=== PATIENT | male | born 1950 | race Caucasian/White ===

== ENCOUNTER 2016-11-08 00:32 | Emergency (ER) | payer MEDICARE ==
[2016-11-08] MEDS ORDERED: ACETAMINOPHEN 325 MG TABLET PO ONE (01:30)
--- NOTE | 2016-11-08 01:32 | ER Document Report ---
HPI - HPI Patient complains to provider of: left foot injury Context: Patient is a 66-year-old male that comes by EMS [id number] for chief complaint of his left foot/toes being run over by a motorized wheelchair. Patient remembers the incident, he states he has a little bit of pain and he could feel a little bit of bleeding initially but this resolved. Patient denies any other injuries or complaints. Past medical history of blindness, dementia. Patient is not a diabetic, not on a blood thinner, he has a current standing order for Zosyn daily secondary to a urinary tract infection. <DANNA OMALLEY - Last Filed: 11/08/16 06:22> Past Medical History - General Information source: Patient - Social History Smoking Status: Never Smoker Frequency of alcohol use: None Drug Abuse: None Lives with: Family Family History: Reviewed & Not Pertinent - Past Medical History Cardiac Medical History: Reports: Hx Hypertension Neurological Medical History: Reports: Other - dementia - Immunizations Immunizations up to date: Yes Hx Diphtheria, Pertussis, Tetanus Vaccination: Yes <DANNA OMALLEY Last Filed: 11/08/16 06:22> Vertical Provider Document - CONSTITUTIONAL General Appearance: WD/WN - Patient sitting calmly and quietly on the stretcher , no signs of distress, No Apparent Distress - INFECTION CONTROL TRAVEL OUTSIDE OF THE [place] IN LAST 30 DAYS: No - HEENT HEENT: Atraumatic, Normocephalic. negative: Normal ENT Exam - Patient with abnormal appearance of both eyes with glazed over pupils - NECK Neck: Normal Inspection - RESPIRATORY Respiratory: Breath Sounds Normal, No Respiratory Distress - CARDIOVASCULAR Cardiovascular: Regular Rate, Regular Rhythm - GI/ABDOMEN Gastrointestinal: Abdomen Soft, Abdomen Non-Tender - MUSCULOSKELETAL/EXTREMETIES Musculoskeletal/Extremeties: Tender - There is bruising and a tiny abrasion over the dorsal aspect of the left second toe. Intact nail. Sensation and capillary refill intact. Remaining foot exam is unremarkable with no other areas of tenderness or abnormality. <DANNA OMALLEY Last Filed: 11/08/16 06:22> Course - Re-evaluation Re-evalutation: X-ray imaging showing nondisplaced fracture of the second digit. Area was cleaned, lien taping applied, I did discuss the findings with the patient in detail. He states he does not want a protective shoe, he barely walks. He did request Tylenol but stated he did not want anything stronger. Patient very pleasant during his stay. <DANNA OMALLEY - Last Filed: 11/08/16 06:22> - Vital Signs Vital signs: Temp Pulse Resp BP Pulse Ox 98.2 F 68 17 116/83 95 11/08/16 03:59 11/08/16 03:59 11/08/16 03:59 11/08/16 03:59 11/08/16 03:59 <SHANNON ALBRIGHT - Last Filed: 11/08/16 07:14> Procedures - Immobilization Left second toe Pre-Proc Neuro Vasc Exam: Normal Immobilizer type: Other - lien taping of 2nd and 3rd toes Performed by: PCT Post-Proc Neuro Vasc Exam: Normal Alignment checked and good: Yes <DANNA OMALLEY - Last Filed: 11/08/16 06:22> Discharge <DANNA OMALLEY - Last Filed: 11/08/16 06:22> <SHANNON ALBRIGHT - Last Filed: 11/08/16 07:14> - Discharge Clinical Impression: Foot injury Qualifiers: Encounter type: initial encounter Laterality: left Qualified Code(s): S99.922A - Unspecified injury of left foot, initial encounter Toe fracture, left Qualifiers: Encounter type: initial encounter Toe: lesser toe Fracture type: closed Phalanx : unspecified phalanx Fracture alignment: nondisplaced Qualified Code(s): S92.505A - Nondisplaced unspecified fracture of left lesser toe(s), initial encounter for closed fracture Condition: Stable Disposition: HOME, SELF-CARE Additional Instructions: There is a nondisplaced fracture on the end of the second toe of the left foot. Keep clean, apply lien tape dressing with padding in between the second and third toe, use protective shoe if needed for walking to avoid further trauma. Ice the toe for the first day (about 3 times), give Tylenol for pain. Follow-up with primary care. Return to emergency department for any concerning symptoms including redness or swelling of the area. Fractured Toe You have fractured your toe. Although this fracture doesn't need a cast or splint, emergency evaluation was needed to assess the straightness of the bones and joints. Reduction ("setting") is necessary for toe fractures which are crooked or twisted. A toe fracture will heal in about three weeks. Usually, the fractured toe is taped to the next toe. The second toe acts as a moving splint to protect the broken one. Ice and elevation help during the first 48 hours. You may need crutches at first if walking is painful. When you begin walking, be careful NOT to do things that hurt. If weight bearing is not comfortable within a few days, you may require a special shoe, walking boot, or cast. Call the doctor or return at once if severe swelling, severe pain, or numbness develop in the toe, or if you suspect you may have re-injured it.
--- NOTE | 2016-11-08 03:18 | RADIOLOGY REPORT (SQ) ---
EXAM DESCRIPTION: FOOT LEFT COMPLETE COMPLETED DATE/TIME: 11/08/2016 2:06 am REASON FOR STUDY: foot/toe run over by wheelchair COMPARISON: Left foot x-ray 02/08/2007. NUMBER OF VIEWS: Three views. TECHNIQUE: AP, lateral and oblique radiographic images acquired of the left foot. LIMITATIONS: None. FINDINGS: MINERALIZATION: Osteopenia. BONES: Linear lucencies noted at the 2nd distal phalanx, suggestive of a nondisplaced fracture. Ther e is cortical irregularity at the 1st proximal phalanx. Degenerative changes with mild hallux valgus deformity at the 1st metatarsophalangeal joint. SOFT TISSUES: Soft tissue swelling at the distal 2nd toe. Partially visualized orthopedic hardware a t the distal tibia. IMPRESSION: Nondisplaced fracture at the 2nd distal phalanx with overlying soft tissue swelling. Cortical irregularity at the 1st proximal phalanx, may be due to degenerative changes versus nondispl aced fracture. Please correlate with point tenderness. TECHNICAL DOCUMENTATION: JOB ID: [id number] [employer]- All Rights Reserved
[2016-11-08 04:09] VITALS: BP 116/83
== END 2016-11-08 04:27 | disposition home or self-care (01) ==
LOC: ER 00:32
DX: S92.505A Nondisplaced unspecified fracture of left lesser toe(s), initial encounter for closed fracture (principal); S99.922A Unspecified injury of left foot, initial encounter; W22.8XXA Striking against or struck by other objects, initial encounter; Z79.899 Other long term (current) drug therapy
CPT/HCPCS: 99283; 73630; A9270